=== PATIENT | female | born 1985 | race Caucasian/White ===

== ENCOUNTER 2019-02-07 00:13 | Emergency (ER) | payer OTHER | END 2019-02-07 05:15 | disposition home or self-care (01) | LOC: JER 00:13 ==

== ENCOUNTER 2019-06-25 21:41 | Inpatient (IN) | payer OTHER ==
[2019-06-25 22:29] VITALS: BMI 34.3
[2019-06-25] MEDS ORDERED: LACTATED RINGERS SOLUTION 1000 ML INFUS.BAG IV ONE (23:19)
--- NOTE | 2019-06-25 23:24 | PDOC ---
History of Present Illness - General Chief Complaint: Weakness Stated Complaint: WEAKNESS/NOT ABLE TO EAT X 2 WKS Time Seen by Provider: 06/25/19 22:52 History Source: Patient - History of Present Illness Initial Comments: 06/25/19 23:19 34 yo F PMH fibroids presenting with weakness. States that for the past 2-3 weeks, she has been having diffuse body aches, feeling more tired than usual, having burning with urination, not eating anything, and has reportedly lost 15- 20 pounds in that time period. Further complains of intermittent sharp pains lasting minutes at a time at different parts of her abdomen, chest, legs, arms. 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 Denies CP, SOB, constipation/diarrhea, DAVE, N/V, fevers/chills. Endorses mild suprapubic abdominal pain pain. LMP now, patient states it is similar to her normal heavy periods. Past History - Past Medical History Allergies/Adverse Reactions: Allergies Allergy/AdvReac Type Severity Reaction Status Date / Time No Known Allergies Allergy Verified 06/25/19 22:29 Home Medications: Ambulatory Orders NK [No Known Home Medication] 06/26/19 COPD: No - Psycho Social/Smoking Cessation Hx Smoking History: Never smoked Have you smoked in the past 12 months: No Information on smoking cessation initiated: No Hx Alcohol Use: No Drug/Substance Use Hx: No Substance Use Type: None Review of Systems - Review of Systems Able to Perform ROS?: Yes Constitutional: Yes: Weakness, Unintentional Wgt. Loss. No: Chills, Fever HEENTM: No: Recent change in vision, Hearing Loss, Difficulty Swallowing Respiratory: No: Cough, Orthopnea, Shortness of Breath Cardiac (ROS): No: Chest Pain, Irregular Heart Rate, Lightheadedness ABD/GI: Yes: Poor Fluid Intake. No: Constipated, Diarrhea, Nausea, Vomiting : Yes: Burning, Frequency. No: Discharge, Flank Pain, Hematuria Musculoskeletal: Yes: Muscle Pain (diffuse body aches), Muscle Weakness *Physical Exam - Vital Signs Last Vital Signs Temp Pulse Resp BP Pulse Ox 98.3 F 74 17 120/78 100 06/25/19 22:25 06/25/19 22:25 06/25/19 22:25 06/25/19 22:25 06/25/19 22:25 - Physical Exam Comments: 06/25/19 23:26 Gen: well-developed, mild distress Neuro: AAOX4, CN II-XII intact, FTN intact, EOMI, PERRLA HEENT: atraumatic, normocephalic Neck: trachea midline, supple CV: regular rate, regular rhythm, no murmurs, rubs, or gallops Pulm: CTA b/l, no wheezing Abd: soft, non-distended, mild ttp in suprapubic region MSK: full ROM, intact pulses Extr: no edema, no deformities Skin: warm, dry ED Treatment Course - LABORATORY CBC & Chemistry Diagram: 06/26/19 00:24 06/26/19 00:24 Medical Decision Making - Medical Decision Making 06/25/19 23:27 Concern for UTI v dehydration v new onset diabetes. - CBC, CMP, coags, T+S - EKG - UA/UC, upreg - CK - CXR port after confirming not - 1L LR 06/26/19 00:07 EKG sinus at 66 bpm. 06/26/19 01:26 Glu 323, Na 134 (corrected 138). Will get BHB level. Concern for active DKA 06/26/19 01:26 Discharge - Discharge Information Problems reviewed: Yes Clinical Impression/Diagnosis: DKA (diabetic ketoacidoses) Condition: Guarded - Follow up/Referral - Patient Discharge Instructions - Post Discharge Activity
[2019-06-26] MEDS ORDERED: ONDANSETRON 4 MG/2 ML VIAL IVPUSH ONE (00:26)
[2019-06-26] MEDS ORDERED: ONDANSETRON 4 MG/2 ML VIAL ONE (00:34)
[2019-06-26 00:41] LABS: BASO % 0.5 % (0-2.0); EOS % 1.4 % (0-4.5); HEMATOCRIT 43.9 % (32.4-45.2); HEMOGLOBIN 14.5 GM/dL (10.7-15.3); LYMPH % 39.4 % (8-40); MCH 29.9 pg (25.7-33.7); MCHC 32.9 g/dl (32.0-36.0); MEAN CELL VOLUME 90.9 fl (80-96); MEAN PLT VOLUME 11.9 fl (7.5-11.1); MONO % 7.1 % (3.8-10.2); NEUT % 51.6 % (42.8-82.8); PLATELET COUNT 270 K/MM3 (134-434); RBC 4.84 M/mm3 (3.60-5.2); RDW 13.6 % (11.6-15.6); WHITE BLOOD COUNT 8.1 K/mm3 (4.0-10.0)
--- NOTE | 2019-06-26 01:00 | PDOC ---
Documentation entered by Jhoana Rhodes SCRIBE, acting as scribe for Ivan Mcgrath MD. Ivan Mcgrath MD: This documentation has been prepared by the scribe, Jhoana Rhodes SCRIBE, under my direction and personally reviewed by me in its entirety. I confirm that the documentation accurately reflects all work, treatment, procedures, and medical decision making performed by me. Attending Attestation - Resident Resident Name: Parveen Cm - ED Attending Attestation I have performed the following: I have examined & evaluated the patient, The case was reviewed & discussed with the resident, I agree w/resident's findings & plan, Exceptions are as noted - HPI HPI: 06/25/19 23:27 The patient is a 34 year old female with a past medical history significant for fibroids and borderline anemia who presents to the emergency department with dysuria, generalized weakness, fatigue, body aches and decreased PO intake. The patient reports shes been having 2 weeks of decreased PO intake associated with generalized body aches, fatigue, weakness, 15-20 lb weight loss and dysuria. The patient reports she was at work today, when she started to feel fuzzy and fatigued, and decided to come in for evaluation. Denies fevers, chills, nausea, vomiting, chest pain or shortness of breath. Denies hx of transfusions. Does not have a PMD. Denies focal weakness or numbness, headche, dizziness, urinary symptoms. 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 No reported history of tobacco, alcohol or recreational drug use. PCP: Dr. Villarreal. - Physicial Exam PE: 06/26/19 00:52 GENERAL: Awake, alert, and fully oriented, in no acute distress EYES: PERRLA, EOMI, sclera anicteric, conjunctiva clear ENT: Oropharynx clear without exudates. Slightly dry MM NECK: Normal ROM, supple, no lymphadenopathy, JVD, or masses LUNGS: Breath sounds equal, clear to auscultation bilaterally. No wheezes, and no crackles HEART: Regular rate and rhythm, normal S1 and S2, no murmurs, rubs or gallops ABDOMEN: Soft, nontender, normoactive bowel sounds. No guarding, no rebound. No masses EXTREMITIES: Normal range of motion, no edema. No cords, erythema, or tenderness NEUROLOGICAL: Normal speech, cranial nerves intact, 5/5 strength in all 4 extremities, normal sensation to light touch in all 4 extremities, normal cerebellar exam, normal gait SKIN: Warm, Dry, normal turgor, no rashes or lesions noted. - Medical Decision Making 06/26/19 00:53 34-year-old female presents the emergency department with generalized weakness, body aches,and poor appetite. Vitals unremarkable. Exam unremarkable. Differential includes anemia versus dehydration versus metabolic disarray versus viral syndrome (although unlikely without cough, sore throat, rhinorrhea , fever, chills) .Plan for labs, urinalysis, urine test, IV fluids, reassess. 06/26/19 02:07 Labs consistent with possible new onset diabetes. Added beta hydroxybutyrate to labs. Per laboratory animal caretaker, they will need to make up the reagent to officially add on the test and that it will take a while. 06/26/19 03:31 BHB >46, consistent with DKA. VBG pending Corrected gap 18 Will start insulin gtt, IVF with KCl, admit Heart Score/ECG Review #1 06/26/19 00:56 Twelve-lead EKG was performed and reviewed by me. Normal sinus rhythm, rate 66. Normal axis and intervals. No ST elevations.
[2019-06-26 01:09] LABS: ALBUMIN 3.5 g/dl (3.4-5.0); ALK PHOS 140 U/L (45-117); ANION GAP 15 MMOL/L (8-16); BILIRUBIN,TOTAL 0.5 mg/dL (0.2-1); BLOOD UREA NITROGEN 11.6 mg/dL (7-18); CALCIUM 8.8 mg/dL (8.5-10.1); CHLORIDE 99 mmol/L (98-107); CO2 20 mmol/L (21-32); CREATININE 0.7 mg/dL (0.55-1.3); GLUCOSE,RANDOM 323 mg/dL (74-106); POTASSIUM 4.1 mmol/L (3.5-5.1); SGOT/AST 17 U/L (15-37); SGPT/ALT 27 U/L (13-61); SODIUM 134 mmol/L (136-145); TOT PROT 7.7 g/dl (6.4-8.2)
[2019-06-26 01:53] LABS: INR 1.03 (0.83-1.09); PROTHROMBIN TIME (PATIENT) 12.2 SEC (9.7-13.0)
[2019-06-26 03:03] LABS: EPI CELLS 9.9 /HPF (0-5/HPF); HYALINE CASTS 5 /lpf (0-8); PH,URINE 5.5 (5.0-8.0); URINE APPEARANCE CLOUDY; URINE BACTERIA 94.6 /hpf (NEGATIVE); URINE BILIRUBIN NEGATIVE (NEGATIVE); URINE COLOR YELLOW; URINE GLUCOSE (UA) 3+ (NEGATIVE); URINE KETONE 4+ (NEGATIVE); URINE LEUK ESTERASE NEGATIVE (NEGATIVE); URINE NITRITE NEGATIVE (NEGATIVE); URINE PROTEIN 1+ (NEGATIVE); URINE RBC 416 /hpf (0-4); URINE UROBILINOGEN 0.2 mg/dL (0.2-1.0)
[2019-06-26] MEDS ORDERED: SODIUM CHLORIDE 0.9% 500 ML INFUS.BAG IV ONE (03:25)
[2019-06-26 03:35] LABS: VENOUS PC02 36.9 mmHg (38-52); VENOUS PH 7.31 (7.31-7.41)
[2019-06-26 03:36] LABS: VENOUS PO2 < 49 mmHg (28-48)
[2019-06-26] MEDS ORDERED: INSULIN REGULAR HUMAN 100 UNITS/ML *VIAL IVPUSH ONE (03:38)
[2019-06-26] MEDS ORDERED: SODIUM CHLORIDE 0.9%/KCL 20 MEQ/1,000 ML INFUS.BAG IV SCH (03:45)
[2019-06-26] MEDS ORDERED: INSULIN REGULAR HUMAN 100 UNITS/ML *VIAL ONE (04:12)
[2019-06-26] MEDS ORDERED: KCL 10 MEQ IVPB 10 MEQ/100 ML INFUS.BAG IVPB ONE ×3 (04:17→13:18)
--- NOTE | 2019-06-26 04:27 | PN ---
<Freddie Souza - Last Filed: 06/26/19 05:46> Teaching Attending Note Name of Resident: Eber Sanchez ATTENDING PHYSICIAN STATEMENT I saw and evaluated the patient. I reviewed the resident's note and discussed the case with the resident. I agree with the resident's findings and plan as documented. SUBJECTIVE: Patient is a 34 year old woman with a PMH of Fibroids and Anemia who presents to the ER with dysuria, generalized weakness, fatigue, body aches and decreased oral intake. The patient reports shes been having 2 weeks of decreased oral intake associated with generalized body aches, fatigue, weakness, 15-20 lb weight loss and dysuria. The patient reports she was at work today, when she started to feel fuzzy and fatigued. Had fever and chills at home but denies nausea, vomiting, chest pain or shortness of breath. Denies history of transfusions. Does not have a PMD. Denies focal weakness or numbness, headche, dizziness, urinary symptoms. 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 Does not smoke, abuse alcohol or illicit drugs. Currently on her period. No recent travel or obvious sick contacts. OBJECTIVE: Alert Vital Signs Period Temp Pulse Resp BP Sys/[place] Pulse Ox Last 24 Hr 98.3 F 74 17 120/78 100 HEENT: No Jaundice, eye redness or discharge, PERRLA, EOMI. Normocephalic, atraumatic. External ears are normal and hearing is grossly intact. No nasal discharge. Neck: Supple, nontender. No palpable adenopathy or thyromegaly. No JVD Chest: Good effort. Clear to auscultation and percussion. Heart: Regular. No S3, rub or murmur Abdomen: Not distended, soft, suprapubic tenderness; and no HSM. No rebound or guarding. Normal bowel sounds. Ext: Peripheral pulses intact. No leg edema. Skin: Warm and dry. No petechiae, rash or ecchymosis. Neuro: Alert. Oriented x3. CN 2-12 grossly intact. Sensation grossly intact in all four extremities and DTR are symmetric. Psych: Appropriate mood and affect. Good insight. Current Medications Generic Name Dose Route Start Last Admin Trade Name Freq PRN Reason Stop Dose Admin Potassium Chloride 10 meq in 100 mls @ 100 mls/hr 06/26/19 03:45 Potassium Chloride 10 Meq Premix Ivpb - IVPB 06/26/19 06:44 [id number] LUDIVINA Home Medications Medication Instructions Recorded NK [No Known Home Medication] 06/26/19 Abnormal Lab Results 06/26/19 06/26/19 06/26/19 00:24 00:24 02:28 MPV 11.9 H POC VBG pCO2 POC VBG pO2 VBG HCO3 VBG Base Excess Sodium 134 L Carbon Dioxide 20 L Random Glucose 323 H Alkaline Phosphatase 140 H Beta-Hydroxybutyrate > 46.0 H Ur Specific [place] 1.040 H Urine Protein 1+ H Urine Glucose (UA) 3+ H Urine Ketones 4+ H Urine Blood 3+ H 06/26/19 03:17 MPV POC VBG pCO2 36.9 L POC VBG pO2 < 49 H VBG HCO3 18.2 L VBG Base Excess -6.9 L Sodium Carbon Dioxide Random Glucose Alkaline Phosphatase Beta-Hydroxybutyrate Ur Specific [place] Urine Protein Urine Glucose (UA) Urine Ketones Urine Blood ASSESSMENT AND PLAN: 1. Diabetic Ketoacidosis - Patient started on IV NS, IV insulin drip and IV KCL in the ER. Being admitted to the ICU to be managed according to the DKA protocol. Provide comprehensive diabetes care with patient teaching and counseling about the importance of adherence to prescribed diabetes regimen, euglycemia, eye care and foot care. Consult Endocrine. EKG is NSR with no ischemic changes. CXR pending. Patient has symptoms of UTI but no supportive urinary findings. States that she had UTI in January 2019, but did not take the prescribed Macrobid. Will treat with IV Rocephin 1 gm qd pending urine culture result. 2. Obesity Counseled on the risks associated with obesity. Will provide patient all the necessary assistance, counseling and positive reinforcement to facilitate weight loss. Consult curing room worker. 3. DVT prophylaxis - Lovenox 40 mg SQ q 24 hours. 4. Advance directives - Full code <Donta House - Last Filed: 06/26/19 09:55> Teaching Attending Note Agree; discussed with ICU resident. Please refer to this history and physical hours billing including today's physical exam from medicine service ( in addition to associated resident note)
[2019-06-26] MEDS: KCL 10 MEQ IVPB 10 MEQ/100 ML INFUS.BAG IVPB SCH ×5 (04:40→15:20)
[2019-06-26] MEDS ORDERED: SODIUM CHLORIDE 0.9%/KCL 20 MEQ/1,000 ML INFUS.BAG IV ONE (05:30)
[2019-06-26] MEDS ORDERED: INSULIN REGULAR 100 UNITS in SODIUM CHLORIDE 99 ML IVPB SCH (05:45)
[2019-06-26] MEDS ORDERED: HEPARIN NA (PORCINE) 5,000 UNITS/ML 1ML VIAL SQ SCH (06:00)
--- NOTE | 2019-06-26 06:12 | CONSULT ---
Consultation: REQUESTING PROVIDER: CONSULT REQUEST: We have been asked to medically evaluate this patient for ( specify). HISTORY OF PRESENT ILLNESS: Patient is a 34 year old woman with a PMH of Fibroids and Anemia who presents to the ER with dysuria, generalized weakness, fatigue, body aches and decreased oral intake. The patient reports shes been having 2 weeks of decreased oral intake associated with generalized body aches, fatigue, weakness, 15-20 lb weight loss and dysuria. The patient reports she was at work today, when she started to feel fuzzy and fatigued. Had fever and chills at home but denies nausea, vomiting, chest pain or shortness of breath. Denies history of transfusions. Does not have a PMD. Denies focal weakness or numbness, headche, dizziness, urinary symptoms. 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 Does not smoke, abuse alcohol or illicit drugs. Currently on her period. No recent travel or obvious sick contacts. REVIEW OF SYSTEMS: CONSTITUTIONAL: Absent: fever, chills, diaphoresis, generalized weakness, malaise, loss of appetite, weight change HEENT: Absent: rhinorrhea, nasal congestion, throat pain, throat swelling, difficulty swallowing, mouth swelling, ear pain, eye pain, visual changes CARDIOVASCULAR: Absent: chest pain, syncope, palpitations, irregular heart rate, lightheadedness , peripheral edema RESPIRATORY: Absent: cough, shortness of breath, dyspnea with exertion, orthopnea, wheezing, stridor, hemoptysis GASTROINTESTINAL: Absent: abdominal pain, abdominal distension, nausea, vomiting, diarrhea, constipation, melena, hematochezia GENITOURINARY: Absent: dysuria, frequency, urgency, hesitancy, hematuria, flank pain, genital pain MUSCULOSKELETAL: Absent: myalgia, arthralgia, joint swelling, back pain, neck pain SKIN: Absent: rash, itching, pallor HEMATOLOGIC/IMMUNOLOGIC: Absent: easy bleeding, easy bruising, lymphadenopathy, frequent infections ENDOCRINE: Absent: unexplained weight gain, unexplained weight loss, heat intolerance, cold intolerance NEUROLOGIC: Absent: headache, focal weakness or paresthesias, dizziness, unsteady gait, seizure, mental status changes, bladder or bowel incontinence PSYCHIATRIC: Absent: anxiety, depression, suicidal or homicidal ideation, hallucinations. PHYSICAL EXAMINATION Vital Signs - 24 hr 06/25/19 22:25 Temperature 98.3 F Pulse Rate 74 Respiratory 17 Rate Blood Pressure 120/78 O2 Sat by Pulse 100 Oximetry (%) GENERAL: Awake, alert, and fully oriented, lethargic HEAD: Normal with no signs of trauma. NECK: supple LUNGS: Breath sounds equal, clear to auscultation bilaterally. No wheezes, and no crackles. No accessory muscle use. HEART: Regular rate and rhythm, normal S1 and S2 without murmur, rub or gallop. ABDOMEN: Soft, epigastric tenderness, not distended, normoactive bowel sounds, no guarding, no rebound, LOWER EXTREMITIES: 2+ pulses, warm, well-perfused. No calf tenderness. No peripheral edema. NEUROLOGICAL: Cranial nerves II-XII intact. Normal speech. PSYCHIATRIC: Cooperative. SKIN: Warm, dry, Laboratory Results - last 24 hr 06/26/19 06/26/19 06/26/19 00:24 00:24 00:24 WBC 8.1 RBC 4.84 Hgb 14.5 Hct 43.9 MCV 90.9 MCH 29.9 MCHC 32.9 RDW 13.6 Plt Count 270 MPV 11.9 H Absolute Neuts (auto) 4.2 Neutrophils % 51.6 Lymphocytes % 39.4 Monocytes % 7.1 Eosinophils % 1.4 Basophils % 0.5 Nucleated RBC % 0 PT with INR INR PTT (Actin FS) 26.5 VBG pH POC VBG pCO2 POC VBG pO2 VBG HCO3 VBG O2 Sat ([place]) VBG Base Excess Sodium 134 L Potassium 4.1 Chloride 99 Carbon Dioxide 20 L Anion Gap 15 BUN 11.6 Creatinine 0.7 Est GFR (CKD-EPI)AfAm 129.19 Est GFR (CKD-EPI)NonAf 111.47 POC Glucometer Random Glucose 323 H Calcium 8.8 Total Bilirubin 0.5 AST 17 ALT 27 Alkaline Phosphatase 140 H Creatine Kinase Total Protein 7.7 Albumin 3.5 Beta-Hydroxybutyrate > 46.0 H Urine Color Urine Appearance Urine pH Ur Specific [place] Urine Protein Urine Glucose (UA) Urine Ketones Urine Blood Urine Nitrite Urine Bilirubin Urine Urobilinogen Ur Leukocyte Esterase Urine RBC (Auto) Urine Casts (Auto) U Epithel Cells (Auto) Urine Bacteria (Auto) Urine HCG, Qual 06/26/19 06/26/19 06/26/19 00:24 02:28 02:28 WBC RBC Hgb Hct MCV MCH MCHC RDW Plt Count MPV Absolute Neuts (auto) Neutrophils % Lymphocytes % Monocytes % Eosinophils % Basophils % Nucleated RBC % PT with INR 12.20 INR 1.03 PTT (Actin FS) VBG pH POC VBG pCO2 POC VBG pO2 VBG HCO3 VBG O2 Sat ([place]) VBG Base Excess Sodium Potassium Chloride Carbon Dioxide Anion Gap BUN Creatinine Est GFR (CKD-EPI)AfAm Est GFR (CKD-EPI)NonAf POC Glucometer Random Glucose Calcium Total Bilirubin AST ALT Alkaline Phosphatase Creatine Kinase Total Protein Albumin Beta-Hydroxybutyrate Urine Color Yellow Urine Appearance Cloudy Urine pH 5.5 Ur Specific [place] 1.040 H Urine Protein 1+ H Urine Glucose (UA) 3+ H Urine Ketones 4+ H Urine Blood 3+ H Urine Nitrite Negative Urine Bilirubin Negative Urine Urobilinogen 0.2 Ur Leukocyte Esterase Negative Urine RBC (Auto) 416 Urine Casts (Auto) 5 U Epithel Cells (Auto) 9.9 Urine Bacteria (Auto) 94.6 Urine HCG, Qual Negative 06/26/19 06/26/19 06/26/19 02:40 03:17 04:42 WBC RBC Hgb Hct MCV MCH MCHC RDW Plt Count MPV Absolute Neuts (auto) Neutrophils % Lymphocytes % Monocytes % Eosinophils % Basophils % Nucleated RBC % PT with INR INR PTT (Actin FS) VBG pH 7.31 POC VBG pCO2 36.9 L POC VBG pO2 < 49 H VBG HCO3 18.2 L VBG O2 Sat ([place]) 77.0 VBG Base Excess -6.9 L Sodium Potassium Chloride Carbon Dioxide Anion Gap BUN Creatinine Est GFR (CKD-EPI)AfAm Est GFR (CKD-EPI)NonAf POC Glucometer 329 Random Glucose Calcium Total Bilirubin AST ALT Alkaline Phosphatase Creatine Kinase 80 Total Protein Albumin Beta-Hydroxybutyrate Urine Color Urine Appearance Urine pH Ur Specific [place] Urine Protein Urine Glucose (UA) Urine Ketones Urine Blood Urine Nitrite Urine Bilirubin Urine Urobilinogen Ur Leukocyte Esterase Urine RBC (Auto) Urine Casts (Auto) U Epithel Cells (Auto) Urine Bacteria (Auto) Urine HCG, Qual Active Medications Generic Name Dose Route Start Last Admin Trade Name Freq PRN Reason Stop Dose Admin Potassium Chloride/Sodium Chloride 20 meq in 1,000 mls @ 150 mls/hr 06/26/19 05:30 Ns+20 Meq Kcl - IV 06/26/19 12:09 ONCE ONE Insulin Human Regular 100 100 mls @ 7.71 mls/hr 06/26/19 05:45 units/ Sodium Chloride IVPB TITR LUDIVINA Protocol 0.1 UNITS/KG/HR CBC, BMP 06/26/19 00:24 06/26/19 00:24 ASSESSMENT/PLAN: Patient is a 34 year old woman with a PMH of Fibroids and Anemia who presents to the ER with dysuria, generalized weakness, fatigue, body aches and decreased oral intake.was found to have UTI and mild DKA # mild DKA , * fisrst time diagnose DM * corrected anion gap 16 , positive ketones , BGM > 250 , VPH 7.31 * IV fluids NS 2 L bolus with 20 KCL * kcl x3 IV * start insulin IV 10 units regular and then start the insulin drip * monitor BGMQ 1 hr * Monitor BMP Q 2 hr * when BGM below 250 switch fluids to D5 1/2 NS * when anion gap closed will bridge with SQ insulin for 2 hours and feed pt if tolerated * zofran for nausea * # UTI start on ceftriaxone IV and follow cx #monitor in ICU # Dvts prophylaxis Dispo: We will continue to follow the patient. Thank you for this consultative opportunity. Visit type - Emergency Visit Emergency Visit: Yes ED Registration Date: 06/26/19 Care time: The patient presented to the Emergency Department on the above date and was hospitalized for further evaluation of their emergent condition. - New Patient This patient is new to me today: Yes Date on this admission: 06/26/19 - Critical Care Critical Care patient: Yes Total Critical Care Time (in minutes): 45 Critical Care Statement: The care of this patient involved high complexity decision making to prevent further life threatening deterioration of the patient 's condition and/or to evaluate & treat vital organ system(s) failure or risk of failure. ATTENDING PHYSICIAN STATEMENT I saw and evaluated the patient. I reviewed the resident's note and discussed the case with the resident. I agree with the resident's findings and plan as documented. SUBJECTIVE: OBJECTIVE: ASSESSMENT AND PLAN:
--- NOTE | 2019-06-26 06:44 | HP ---
CHIEF COMPLAINT: weakness and lethargy for 3 weeks PCP: None, Pt. has never seen Dr. Villarreal HISTORY OF PRESENT ILLNESS: Pt. is 34 y.o. F w/ PMHx. of fibroids presents with 3 weeks of lethargy and generalized weakness. Pt. states that her mother has pre -diabetes and that her father has diabetes. Pt. endorses burning sensation on urination over the last 3 weeks w/ associated chills and subjective fever within the last week. Pt. 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 Pt. states that she usually goes to sleep as soon as she gets home and eats whatever is quick to eat. Pt. denies having a PCP and has been unable to make an appointment with Dr. Villarreal because of insurance issues. Pt. endorses decreased PO intake, and generalized body aches. Pt. denies any chest pain, shortness of breath, lightheadedness or dizziness. Pt. follows up at [facility] for Gynecology. Pt. had a Pap Smear this year which was unremarkable. ER course was notable for: (1) LR x1 L, NS x1L, EKG, Zofran (2) Novolog (3) Recent Travel: No PAST MEDICAL HISTORY: Fibroids PAST SURGICAL HISTORY: Denies Social History: Smoking: Denies Alcohol: Denies Drugs: Denies Allergies No Known Allergies Allergy (Verified 06/25/19 22:29) HOME MEDICATIONS: Home Medications Medication Instructions Recorded NK [No Known Home Medication] 06/26/19 REVIEW OF SYSTEMS As above PHYSICAL EXAMINATION Vital Signs - 24 hr 06/25/19 22:25 Temperature 98.3 F Pulse Rate 74 Respiratory 17 Rate Blood Pressure 120/78 O2 Sat by Pulse 100 Oximetry (%) GENERAL: Awake, alert, and fully oriented, in no acute distress. HEAD: Normal with no signs of trauma. EYES: Extraocular movements intact, sclera anicteric, conjunctiva clear. EARS, NOSE, THROAT: Ears normal, nares patent, oropharynx clear without exudates. Moist mucous membranes. NECK: Normal range of motion, supple without lymphadenopathy, JVD, or masses. LUNGS: Breath sounds equal, clear to auscultation bilaterally. No wheezes, and no crackles. No accessory muscle use. HEART: Regular rate and rhythm, normal S1 and S2 without murmur ABDOMEN: Soft, obese, suprapubic, epigastric and LLQ tenderness, not distended, normoactive bowel sounds MUSCULOSKELETAL: Normal range of motion at all joints. No bony deformities or tenderness. No CVA tenderness. UPPER EXTREMITIES: 2+ pulses, warm, well-perfused. No cyanosis. No clubbing. No peripheral edema. LOWER EXTREMITIES: 2+ dorsal pedal pulses, warm, well-perfused. No calf tenderness. No peripheral edema. NEUROLOGICAL: Cranial nerves II-XII intact. Normal speech. Gait not assessed. PSYCHIATRIC: Cooperative. Good eye contact. Appropriate mood and affect. SKIN: Warm, dry, normal turgor, no rashes or lesions noted. Laboratory Results - last 24 hr 06/26/19 06/26/19 06/26/19 00:24 00:24 00:24 WBC 8.1 RBC 4.84 Hgb 14.5 Hct 43.9 MCV 90.9 MCH 29.9 MCHC 32.9 RDW 13.6 Plt Count 270 MPV 11.9 H Absolute Neuts (auto) 4.2 Neutrophils % 51.6 Lymphocytes % 39.4 Monocytes % 7.1 Eosinophils % 1.4 Basophils % 0.5 Nucleated RBC % 0 PT with INR INR PTT (Actin FS) 26.5 VBG pH POC VBG pCO2 POC VBG pO2 VBG HCO3 VBG O2 Sat ([place]) VBG Base Excess Sodium 134 L Potassium 4.1 Chloride 99 Carbon Dioxide 20 L Anion Gap 15 BUN 11.6 Creatinine 0.7 Est GFR (CKD-EPI)AfAm 129.19 Est GFR (CKD-EPI)NonAf 111.47 POC Glucometer Random Glucose 323 H Calcium 8.8 Total Bilirubin 0.5 AST 17 ALT 27 Alkaline Phosphatase 140 H Creatine Kinase Total Protein 7.7 Albumin 3.5 Beta-Hydroxybutyrate > 46.0 H Urine Color Urine Appearance Urine pH Ur Specific [place] Urine Protein Urine Glucose (UA) Urine Ketones Urine Blood Urine Nitrite Urine Bilirubin Urine Urobilinogen Ur Leukocyte Esterase Urine RBC (Auto) Urine Casts (Auto) U Epithel Cells (Auto) Urine Bacteria (Auto) Urine HCG, Qual 06/26/19 06/26/19 06/26/19 00:24 02:28 02:28 WBC RBC Hgb Hct MCV MCH MCHC RDW Plt Count MPV Absolute Neuts (auto) Neutrophils % Lymphocytes % Monocytes % Eosinophils % Basophils % Nucleated RBC % PT with INR 12.20 INR 1.03 PTT (Actin FS) VBG pH POC VBG pCO2 POC VBG pO2 VBG HCO3 VBG O2 Sat ([place]) VBG Base Excess Sodium Potassium Chloride Carbon Dioxide Anion Gap BUN Creatinine Est GFR (CKD-EPI)AfAm Est GFR (CKD-EPI)NonAf POC Glucometer Random Glucose Calcium Total Bilirubin AST ALT Alkaline Phosphatase Creatine Kinase Total Protein Albumin Beta-Hydroxybutyrate Urine Color Yellow Urine Appearance Cloudy Urine pH 5.5 Ur Specific [place] 1.040 H Urine Protein 1+ H Urine Glucose (UA) 3+ H Urine Ketones 4+ H Urine Blood 3+ H Urine Nitrite Negative Urine Bilirubin Negative Urine Urobilinogen 0.2 Ur Leukocyte Esterase Negative Urine RBC (Auto) 416 Urine Casts (Auto) 5 U Epithel Cells (Auto) 9.9 Urine Bacteria (Auto) 94.6 Urine HCG, Qual Negative 06/26/19 06/26/19 06/26/19 02:40 03:17 04:42 WBC RBC Hgb Hct MCV MCH MCHC RDW Plt Count MPV Absolute Neuts (auto) Neutrophils % Lymphocytes % Monocytes % Eosinophils % Basophils % Nucleated RBC % PT with INR INR PTT (Actin FS) VBG pH 7.31 POC VBG pCO2 36.9 L POC VBG pO2 < 49 H VBG HCO3 18.2 L VBG O2 Sat ([place]) 77.0 VBG Base Excess -6.9 L Sodium Potassium Chloride Carbon Dioxide Anion Gap BUN Creatinine Est GFR (CKD-EPI)AfAm Est GFR (CKD-EPI)NonAf POC Glucometer 329 Random Glucose Calcium Total Bilirubin AST ALT Alkaline Phosphatase Creatine Kinase 80 Total Protein Albumin Beta-Hydroxybutyrate Urine Color Urine Appearance Urine pH Ur Specific [place] Urine Protein Urine Glucose (UA) Urine Ketones Urine Blood Urine Nitrite Urine Bilirubin Urine Urobilinogen Ur Leukocyte Esterase Urine RBC (Auto) Urine Casts (Auto) U Epithel Cells (Auto) Urine Bacteria (Auto) Urine HCG, Qual ASSESSMENT/PLAN: Pt. is 34 y.o. F w/ PMHx. of fibroids presents with 3 weeks of lethargy and generalized weakness. Pt. admitted for DKA. #DKA A, corrected AG is 18 UA: 3+ Glucose, 4+ ketones B-hydroxybutyrate: >46 Bicarbonate: 20 VBG noted BGM Q1H BMP Q2H start Insulin GTT NS w/ 20meq K+ EKG: Prolonged QTc: 490, NSR, no Q-waves, TWI in leads V1, aVR ICU monitoring counselled Pt. on lifestyle and diet modifications f/u A1c #Positive UA UA did not comment on WBC count, and was LE negative however Pt. had been complaining of burning on urination. Pt. had been diagnosed with UTI in Jan, 2019 and according to Pharmacy, Pt did not greens picker her medications. Will start Ceftriaxone 1gm Daily f/u CBC #FEN NS w/ 20meq K+ monitor electrolytes and replete as needed NPO #DVT Ppx. Heparin TID SQ Visit type - Emergency Visit Emergency Visit: Yes ED Registration Date: 06/26/19 Care time: The patient presented to the Emergency Department on the above date and was hospitalized for further evaluation of their emergent condition. - New Patient This patient is new to me today: Yes Date on this admission: 06/27/19 - Critical Care Critical Care patient: No ATTENDING PHYSICIAN STATEMENT I saw and evaluated the patient. I reviewed the resident's note and discussed the case with the resident. I agree with the resident's findings and plan as documented. SUBJECTIVE: OBJECTIVE: ASSESSMENT AND PLAN:
[2019-06-26] MEDS ORDERED: SODIUM CHLORIDE 1,000 ML IV SCH (06:45)
[2019-06-26] MEDS ORDERED: INSULIN SLIDING SCALE (NOVOLOG) 1 VIAL SQ SCH (07:00)
--- NOTE | 2019-06-26 08:24 | EKG ---
Test Reason : Blood Pressure : / mmHG Vent. Rate : 066 BPM Atrial Rate : 066 BPM P-R Int : 120 ms QRS Dur : 078 ms QT Int : 468 ms P-R-T Axes : 042 051 039 degrees QTc Int : 490 ms POOR DATA QUALITY, INTERPRETATION MAY BE ADVERSELY AFFECTED NORMAL SINUS RHYTHM PROLONGED QT ABNORMAL ECG NO PREVIOUS ECGS AVAILABLE Confirmed by Rita Josue ([id number]) on 06/26/2019 8:23:35 AM Referred By: Confirmed By:Rita Josue
[2019-06-26] MEDS ORDERED: HEPARIN NA (PORCINE) 5,000 UNITS/ML 1ML VIAL ONE (08:32)
[2019-06-26 09:02] LABS: ARTERIAL BLD GAS O2 SATURATION 97.1 % (95-98); ARTERIAL BLOOD GAS BASE EXCESS -4.9 meq/l (-2-2); ARTERIAL BLOOD GAS PCO2 30.6 mmHg (35-45); ARTERIAL BLOOD GAS PO2 92.7 mmHg (80-100)
[2019-06-26 09:03] LABS: ALLENS TEST POSITIVE
[2019-06-26 09:19] LABS: CALCIUM 7.6 mg/dL (8.5-10.1); CREATININE 0.6 mg/dL (0.55-1.3); POTASSIUM 3.2 mmol/L (3.5-5.1)
--- NOTE | 2019-06-26 09:46 | PN ---
Progress Note (short form) - Note Progress Note: Pt evaluated this AM. Without DKA. ABG> 7.35, HCO3>18, BG> 250. Does not need insulin gtt and ICU admission at this time. D/w Dr. Hernandez (ED) attending. D/w nurse at bedside. Recommend SQ insulin as needed. Thank you Laboratory Tests 06/26/19 06/26/19 06/26/19 08:25 08:25 08:47 ABG pH 7.40 Sodium 138 Potassium 3.2 L Chloride 107 Carbon Dioxide 20 L Anion Gap 11 BUN 10.0 Creatinine 0.6 Hemoglobin A1c % 11.8 H Francisca Weston MD PGY-3 ICU team
[2019-06-26] MEDS ORDERED: CEFTRIAXONE 1 GM in DEXTROSE 5%-WATER - 50 ML IVPB SCH (10:00)
[2019-06-26] MEDS ORDERED: INSULIN (LEVEMIR) 100 UNITS/ML UNITS SQ ONE ×3 (10:07→10:46)
[2019-06-26] MEDS ORDERED: LACTATED RINGERS SOLUTION 1,000 ML/1,000 ML INFUS.BAG IV STA (10:08)
[2019-06-26 10:12] LABS: BLOOD UREA NITROGEN 9.7 mg/dL (7-18); CALCIUM 7.6 mg/dL (8.5-10.1); CREATININE 0.6 mg/dL (0.55-1.3); POTASSIUM 3.1 mmol/L (3.5-5.1)
[2019-06-26] MEDS ORDERED: CEFTRIAXONE 1 GM/50 ML BAG ONE (10:34)
[2019-06-26] MEDS ORDERED: POTASSIUM CHLORIDE ORAL LIQUID 20 MEQ/15 ML PO ONE ×2 (10:43→13:29)
[2019-06-26] MEDS ORDERED: MAGNESIUM 1GM/D5W - 1 GM/100 ML IVPB IVPB ONE ×2 (10:43→11:35)
[2019-06-26] MEDS ORDERED: LACTATED RINGERS SOLUTION 1000 ML INFUS.BAG IV ONE (10:45)
--- NOTE | 2019-06-26 10:52 | PN ---
Progress Note (short form) - Note Progress Note: Patient's gap closed with slight NAGMA persisting; giving additional 2L LR to avoid worsening of NAGMA. 10U Levemir SQ now with SSI coverage and starting on MTF with diabetic diet ( can tolerate PO); A1c is 11-range. She is a newly diagnosed type 2 DM and will need: -Metformin -Long-acting insulin -Likely second line agent such as januvia -Podiatry referral -Urine microalbumin -Close PCP followup -Nutrition referral -Completion of UTI tx (noncompliance indicated with prior OP Rx per H and P) Downgraded to floor, continue q2h checks for x2 more times then AC+HS. If normalization of glucose tonight can DC home. Visit type - Emergency Visit Emergency Visit: Yes ED Registration Date: 06/26/19 Care time: The patient presented to the Emergency Department on the above date and was hospitalized for further evaluation of their emergent condition. - New Patient This patient is new to me today: Yes Date on this admission: 06/26/19 - Critical Care Critical Care patient: Yes Total Critical Care Time (in minutes): 60 Critical Care Statement: The care of this patient involved high complexity decision making to prevent further life threatening deterioration of the patient 's condition and/or to evaluate & treat vital organ system(s) failure or risk of failure.
[2019-06-26] MEDS: CEFTRIAXONE 1 GM in DEXTROSE 5%-WATER - 50 ML IVPB SCH (11:21)
[2019-06-26 12:44] LABS: BLOOD UREA NITROGEN 9.7 mg/dL (7-18); CALCIUM 7.7 mg/dL (8.5-10.1); CREATININE 0.5 mg/dL (0.55-1.3); POTASSIUM 3.6 mmol/L (3.5-5.1)
[2019-06-26] MEDS: INSULIN SLIDING SCALE (NOVOLOG) 1 VIAL SQ SCH ×3 (13:10→21:33)
[2019-06-26] MEDS ORDERED: LACTATED RINGERS SOLUTION 1,000 ML/1,000 ML INFUS.BAG IV SCH (13:30)
--- NOTE | 2019-06-26 14:14 | PN ---
Teaching Attending Note Name of Resident: Francisca Weston ATTENDING PHYSICIAN STATEMENT I saw and evaluated the patient. I reviewed the resident's note and discussed the case with the resident. I agree with the resident's findings and plan as documented. SUBJECTIVE: Patient seen in the ER. Feeling better. AG closed. Off IV Insulin. Intake & Output 06/23/19 06/24/19 06/25/19 06/26/19 23:59 23:59 23:59 23:59 Weight 170 lb Last Vital Signs Temp Pulse Resp BP Pulse Ox 98.3 F 76 18 96/63 99 06/25/19 22:25 06/26/19 08:05 06/26/19 08:05 06/26/19 08:05 06/26/19 10:00 Active Medications Atorvastatin Calcium (Lipitor -) 40 mg PO HS LUDIVINA Ceftriaxone Sodium 1 gm/ (Dextrose) 50 mls @ 100 mls/hr IVPB DAILY LUDIVINA; Protocol Last Admin: 06/26/19 11:21 Dose: 100 mls/hr Lactated Ringer's (Lactated Ringers Solution) 1,000 ml in 1,000 mls @ 100 mls/ hr IV ASDIR LUDIVINA Insulin Aspart (Novolog Vial Sliding Scale -) 1 vial SQ ACHS [facility]; Protocol Last Admin: 06/26/19 13:10 Dose: 2 units Metformin HCl (Glucophage -) 500 mg PO BID@0700,1630 LUDIVINA GENERAL: Awake, alert, NAD HEAD: Normal with no signs of trauma. NECK: supple LUNGS: clear to auscultation bilaterally. No wheezes. HEART: Regular rate and rhythm, normal S1 and S2 without murmur, rub or gallop. ABDOMEN: Soft, epigastric tenderness, not distended, normoactive bowel sounds, no guarding, no rebound, LOWER EXTREMITIES: 2+ pulses, warm, well-perfused. No calf tenderness. No peripheral edema. NEUROLOGICAL: Cranial nerves II-XII intact. Normal speech. PSYCHIATRIC: Cooperative. SKIN: Warm, dry, Laboratory Results - last 24 hr 06/26/19 06/26/19 06/26/19 00:24 00:24 00:24 WBC 8.1 RBC 4.84 Hgb 14.5 Hct 43.9 MCV 90.9 MCH 29.9 MCHC 32.9 RDW 13.6 Plt Count 270 MPV 11.9 H Absolute Neuts (auto) 4.2 Neutrophils % 51.6 Lymphocytes % 39.4 Monocytes % 7.1 Eosinophils % 1.4 Basophils % 0.5 Nucleated RBC % 0 PT with INR INR PTT (Actin FS) 26.5 VBG pH POC VBG pCO2 POC VBG pO2 VBG HCO3 VBG O2 Sat ([place]) VBG Base Excess Sodium 134 L Potassium 4.1 Chloride 99 Carbon Dioxide 20 L Anion Gap 15 BUN 11.6 Creatinine 0.7 Est GFR (CKD-EPI)AfAm 129.19 Est GFR (CKD-EPI)NonAf 111.47 POC Glucometer Random Glucose 323 H Calcium 8.8 Total Bilirubin 0.5 AST 17 ALT 27 Alkaline Phosphatase 140 H Creatine Kinase Total Protein 7.7 Albumin 3.5 Beta-Hydroxybutyrate > 46.0 H Urine Color Urine Appearance Urine pH Ur Specific [place] Urine Protein Urine Glucose (UA) Urine Ketones Urine Blood Urine Nitrite Urine Bilirubin Urine Urobilinogen Ur Leukocyte Esterase Urine RBC (Auto) Urine Casts (Auto) U Epithel Cells (Auto) Urine Bacteria (Auto) Urine HCG, Qual 06/26/19 06/26/19 06/26/19 00:24 02:28 02:28 WBC RBC Hgb Hct MCV MCH MCHC RDW Plt Count MPV Absolute Neuts (auto) Neutrophils % Lymphocytes % Monocytes % Eosinophils % Basophils % Nucleated RBC % PT with INR 12.20 INR 1.03 PTT (Actin FS) VBG pH POC VBG pCO2 POC VBG pO2 VBG HCO3 VBG O2 Sat ([place]) VBG Base Excess Sodium Potassium Chloride Carbon Dioxide Anion Gap BUN Creatinine Est GFR (CKD-EPI)AfAm Est GFR (CKD-EPI)NonAf POC Glucometer Random Glucose Calcium Total Bilirubin AST ALT Alkaline Phosphatase Creatine Kinase Total Protein Albumin Beta-Hydroxybutyrate Urine Color Yellow Urine Appearance Cloudy Urine pH 5.5 Ur Specific [place] 1.040 H Urine Protein 1+ H Urine Glucose (UA) 3+ H Urine Ketones 4+ H Urine Blood 3+ H Urine Nitrite Negative Urine Bilirubin Negative Urine Urobilinogen 0.2 Ur Leukocyte Esterase Negative Urine RBC (Auto) 416 Urine Casts (Auto) 5 U Epithel Cells (Auto) 9.9 Urine Bacteria (Auto) 94.6 Urine HCG, Qual Negative 06/26/19 06/26/19 06/26/19 02:40 03:17 04:42 WBC RBC Hgb Hct MCV MCH MCHC RDW Plt Count MPV Absolute Neuts (auto) Neutrophils % Lymphocytes % Monocytes % Eosinophils % Basophils % Nucleated RBC % PT with INR INR PTT (Actin FS) VBG pH 7.31 POC VBG pCO2 36.9 L POC VBG pO2 < 49 H VBG HCO3 18.2 L VBG O2 Sat ([place]) 77.0 VBG Base Excess -6.9 L Sodium Potassium Chloride Carbon Dioxide Anion Gap BUN Creatinine Est GFR (CKD-EPI)AfAm Est GFR (CKD-EPI)NonAf POC Glucometer 329 Random Glucose Calcium Total Bilirubin AST ALT Alkaline Phosphatase Creatine Kinase 80 Total Protein Albumin Beta-Hydroxybutyrate Urine Color Urine Appearance Urine pH Ur Specific [place] Urine Protein Urine Glucose (UA) Urine Ketones Urine Blood Urine Nitrite Urine Bilirubin Urine Urobilinogen Ur Leukocyte Esterase Urine RBC (Auto) Urine Casts (Auto) U Epithel Cells (Auto) Urine Bacteria (Auto) Urine HCG, Qual Active Medications Generic Name Dose Route Start Last Admin Trade Name Freq PRN Reason Stop Dose Admin Potassium Chloride/Sodium Chloride 20 meq in 1,000 mls @ 150 mls/hr 06/26/19 05:30 Ns+20 Meq Kcl - IV 06/26/19 12:09 ONCE ONE Insulin Human Regular 100 100 mls @ 7.71 mls/hr 06/26/19 05:45 units/ Sodium Chloride IVPB TITR LUDIVINA Protocol 0.1 UNITS/KG/HR ASSESSMENT/PLAN: Resolving DKA Anemia Fibroids UTI SQ Insulin Continue IVF ABX or UTI Monitor I & O PO as tolerated Can monitor on the medical floor Dr Anaya
[2019-06-26 14:29] LABS: BLOOD UREA NITROGEN 8.4 mg/dL (7-18); CALCIUM 7.4 mg/dL (8.5-10.1); CREATININE 0.6 mg/dL (0.55-1.3); POTASSIUM 4.2 mmol/L (3.5-5.1)
[2019-06-26] MEDS ORDERED: POTASSIUM CHLORIDE ORAL LIQUID 20 MEQ/15 ML ONE (15:11)
[2019-06-26 16:24] LABS: BLOOD UREA NITROGEN 9.2 mg/dL (7-18); CALCIUM 7.5 mg/dL (8.5-10.1); CREATININE 0.5 mg/dL (0.55-1.3); POTASSIUM 4.1 mmol/L (3.5-5.1)
[2019-06-26] MEDS ORDERED: metFORMIN HCL 500 MG TABLET (FP) ONE (17:18)
[2019-06-26] MEDS: metFORMIN HCL 500 MG TABLET (FP) PO SCH (17:45)
[2019-06-26 19:19] LABS: BLOOD UREA NITROGEN 8.2 mg/dL (7-18); CALCIUM 7.7 mg/dL (8.5-10.1); CREATININE 0.6 mg/dL (0.55-1.3)
[2019-06-26] MEDS ORDERED: ATORVASTATIN CA 40 MG TABLET (FP) ONE (21:27)
[2019-06-26 21:39] LABS: CREATININE 0.6 mg/dL (0.55-1.3); POTASSIUM 3.9 mmol/L (3.5-5.1)
[2019-06-26] MEDS ORDERED: ATORVASTATIN CA 40 MG TABLET (FP) PO SCH (22:00)
[2019-06-27 03:11] VITALS: TEMP 98.4
[2019-06-27] MEDS ORDERED: INSULIN (NOVOLOG) ASPART 100 UNITS/ML 10ML VIAL ONE (06:09)
[2019-06-27] MEDS ORDERED: metFORMIN HCL 500 MG TABLET (FP) ONE (06:09)
[2019-06-27] MEDS: INSULIN SLIDING SCALE (NOVOLOG) 1 VIAL SQ SCH ×2 (06:29→11:47)
[2019-06-27] MEDS: metFORMIN HCL 500 MG TABLET (FP) PO SCH (06:29)
[2019-06-27 08:08] LABS: HEMATOCRIT 39.1 % (32.4-45.2); HEMOGLOBIN 12.6 GM/dL (10.7-15.3); MCH 30.1 pg (25.7-33.7); MCHC 32.3 g/dl (32.0-36.0); MEAN CELL VOLUME 93.1 fl (80-96); MEAN PLT VOLUME 11.8 fl (7.5-11.1); PLATELET COUNT 181 K/MM3 (134-434); RDW 13.6 % (11.6-15.6); WHITE BLOOD COUNT 5.8 K/mm3 (4.0-10.0)
[2019-06-27] MEDS: CEFTRIAXONE 1 GM in DEXTROSE 5%-WATER - 50 ML IVPB SCH (10:41)
[2019-06-27] MEDS ORDERED: CEFTRIAXONE 1 GM/50 ML BAG ONE ×2 (10:47→10:56)
[2019-06-27] MEDS ORDERED: INSULIN (LEVEMIR) 100 UNITS/ML UNITS SQ ONE ×2 (11:20→11:53)
--- NOTE | 2019-06-27 11:38 | DS ---
Physical Exam: SUBJECTIVE: Patient seen and examined OBJECTIVE: Vital Signs Period Temp Pulse Resp BP Sys/[place] Pulse Ox Last 24 Hr 98.0 F-98.7 F 60-81 17-20 90-106/56-68 96-100 PHYSICAL EXAM GENERAL: The patient is awake, alert, and fully oriented, in no acute distress. HEAD: Normal with no signs of trauma. EYES: PERRL, extraocular movements intact, sclera anicteric, conjunctiva clear. ENT: Ears normal, nares patent, oropharynx clear without exudates, moist mucous membranes. NECK: Trachea midline, full range of motion, supple. LUNGS: Breath sounds equal, clear to auscultation bilaterally, no wheezes, no crackles, no accessory muscle use. HEART: Regular rate and rhythm, S1, S2 without murmur, rub or gallop. ABDOMEN: Soft, nontender, nondistended, normoactive bowel sounds, no guarding, no rebound, no hepatosplenomegaly, no masses. EXTREMITIES: 2+ pulses, warm, well-perfused, no edema. NEUROLOGICAL: Cranial nerves II through XII grossly intact. Normal speech, gait not observed. PSYCH: Normal mood, normal affect. SKIN: Warm, dry, normal turgor, no rashes or lesions noted. LABS Laboratory Results - last 24 hr 06/26/19 06/26/19 06/26/19 11:43 13:50 15:31 WBC RBC Hgb Hct MCV MCH MCHC RDW Plt Count MPV Sodium 137 138 136 Potassium 3.6 4.2 4.1 Chloride 107 108 H 108 H Carbon Dioxide 17 L 18 L 19 L Anion Gap 13 12 8 BUN 9.7 8.4 9.2 Creatinine 0.5 L 0.6 0.5 L Est GFR (CKD-EPI)AfAm 144.31 135.91 144.31 Est GFR (CKD-EPI)NonAf 124.51 117.26 124.51 POC Glucometer Random Glucose 184 H 286 H 287 H Calcium 7.7 L 7.4 L 7.5 L Magnesium 06/26/19 06/26/19 06/26/19 18:17 18:41 20:42 WBC RBC Hgb Hct MCV MCH MCHC RDW Plt Count MPV Sodium 138 136 Potassium 4.0 3.9 Chloride 108 H 107 Carbon Dioxide 20 L 19 L Anion Gap 10 9 BUN 8.2 8.0 Creatinine 0.6 0.6 Est GFR (CKD-EPI)AfAm 135.91 135.91 Est GFR (CKD-EPI)NonAf 117.26 117.26 POC Glucometer 256 Random Glucose 262 H 312 H Calcium 7.7 L 8.0 L Magnesium 06/26/19 06/27/19 06/27/19 21:30 05:56 07:09 WBC 5.8 RBC 4.20 Hgb 12.6 Hct 39.1 MCV 93.1 MCH 30.1 MCHC 32.3 RDW 13.6 Plt Count 181 D MPV 11.8 H Sodium Potassium Chloride Carbon Dioxide Anion Gap BUN Creatinine Est GFR (CKD-EPI)AfAm Est GFR (CKD-EPI)NonAf POC Glucometer 280 205 Random Glucose Calcium Magnesium 06/27/19 06/27/19 07:09 11:27 WBC RBC Hgb Hct MCV MCH MCHC RDW Plt Count MPV Sodium Potassium Chloride Carbon Dioxide Anion Gap BUN Creatinine Est GFR (CKD-EPI)AfAm Est GFR (CKD-EPI)NonAf POC Glucometer 266 Random Glucose Calcium Magnesium 1.8 HOSPITAL COURSE: Date of Admission:06/26/19 Date of Discharge: 06/27/19 Discharge Summary Problems reviewed: Yes Reason For Visit: DIABETIC KETOACIDOSIS Condition: Improved - Instructions Diet, Activity, Other Instructions: You were seen for DKA and diagnosed with new onset DM2, uncontrolled as well as hyperlipidemia and obesity Please keep these followups: -Primary Care Dr. Figueroa: Thursday06/29/19 2:00pm -Dr. Cole (Endocrine referral) -Podiatry 1 month -[facility] Eval Please keep a diet low in sugars, carbs, and fats. Resume regular activity level New Medications include: -Levemir 8 units in the mornings -Metformin 1000mg TWICE daily -Atorvastatin 40mg NIGHTLY -Keflex 500mg TWICE daily for 7 days Please followup CMP, Mg, and CK at your PCP appointment Check you glucose in the morning when you wake up, before you go to bed, and before meals. Write the values down and bring to your PCP appointment. If values >250 call your doctor; if >300 persistently consider going to the ER. If you get abdominal pain, nausea/vomiting, start feeling very sick and dizzy , please go to ER. Referrals: Neptali Figueroa MD [Staff Physician] - (06/29/2019 2:00pm) Tien Connors MD [Staff Physician] - 1 Month ([facility]ERTO eval) Amaris Villarreal MD [Primary Care Provider] - (3-5 days) Artis Cole MD [Staff Physician] - 2 Weeks (Endocrine referral) Orin Cook DPM [Staff Physician] - 1 Month (DM foot eval) Disposition: HOME - Home Medications Comprehensive Discharge Medication List: Ambulatory Orders Alcohol Antiseptic Pads [Alcohol Prep Pads] 1 each TP ACHS #1 box 06/27/19 Atorvastatin Ca [Lipitor] 40 mg PO HS #30 tablet 06/27/19 Cephalexin [Keflex] 500 mg PO BID #14 capsule 06/27/19 Insulin Detemir [Levemir Flextouch] 8 unit SQ DAILY #1 insuln.pen 06/27/19 Miscellaneous Medical Supply [Glucometer Device] 1 each LIZETT ASDIR #1 kit Misc[employer] [Glucometer Test Strips #100] 1 each LIZETT ASDIR #1 box 06/27/19 Miscellaneous Medical Supply [Lancets] 1 each LIZETT ACHS #1 box 06/27/19 Pen Needle, Diabetic [[place]] 1 each MC DAILY #100 dis.needle 06/27/19 metFORMIN HCL [Metformin ER Osmotic] 1,000 mg PO BID #60 tab.er.24 06/27/19 ATTENDING PHYSICIAN STATEMENT I saw and evaluated the patient. I reviewed the resident's note and discussed the case with the resident. I agree with the resident's findings and plan as documented. SUBJECTIVE: OBJECTIVE: ASSESSMENT AND PLAN:
[2019-06-27 11:47] VITALS: BP 103/59; PULSE 73
[2019-06-27] MEDS ORDERED: INSULIN REGULAR HUMAN 100 UNITS/ML *VIAL ONE (11:54)
== END 2019-06-27 14:35 | disposition home or self-care (01) | DRG 420 ==
LOC: JER 21:41 → JERBED 06-26 03:31
PROVIDERS: ADMIT Internal Medicine; ATTEND Internal Medicine
DX: E11.10 Type 2 diabetes mellitus with ketoacidosis without coma (principal); E66.9 Obesity, unspecified; Z68.36 Body mass index [BMI] 36.0-36.9, adult; N39.0 Urinary tract infection, site not specified; E78.5 Hyperlipidemia, unspecified
CPT/HCPCS: 36415; 36600; 74176-TC; 80048; 80053; 80061; 81003; 82010; 82550; 82803; 82962; 83036; 83721; 83735; 84703; 85025; 85027; 85610; 85730; 86850; 86900; 86901; 87077; 87086; 93005; 93010; 99285-25; J1644; J7030